=== PATIENT | female | born 1965 | race Caucasian/White ===

== ENCOUNTER 2017-04-26 13:05 | Emergency (ER) | payer OTHER ==
[2017-04-26 13:14] VITALS: RESP 18; TEMP 98.2
[2017-04-26] MEDS ORDERED: NS 1,000 ML IV ONE (13:23)
--- NOTE | 2017-04-26 13:27 | EDPHY ---
H & P Stated Complaint: seizure with head injury Time Seen by Provider: 04/26/17 13:25 HPI/ROS: CHIEF COMPLAINT: Seizure, head injury, neck pain HISTORY OF PRESENT ILLNESS: The patient was a working when she was observed to have a witnessed seizure. She fell backwards striking her head. She had a seizure lasted approximately 3-5 minutes. The patient does have a history of epilepsy. She is on Tegretol. She last had a seizure 1 year ago. The patient currently complains of an occipital headache, neck pain and slight confusion. She denies any additional traumatic complaints. She denies any recent history of fever, infection, chest pain or palpitations. The patient denies significant past medical history aside from her seizure disorder. REVIEW OF SYSTEMS: A comprehensive 10 point review of systems is otherwise negative aside from elements mentioned in the history of present illness. Source: Patient Exam Limitations: No limitations - Personal History LMP (Females 10-55): Post Menopausal Current Tetanus/Diphtheria Vaccine: Unsure Current Tetanus Diphtheria and Acellular Pertussis (TDAP): Unsure - Medical/Surgical History Hx Asthma: No Hx Chronic Respiratory Disease: No Hx Diabetes: No Hx Cardiac Disease: No Hx Renal Disease: No Hx Cirrhosis: No Hx Alcoholism: No Hx HIV/AIDS: No Hx Splenectomy or Spleen Trauma: No Other PMH: epilepsiy - Social History Smoking Status: Former smoker - Physical Exam Exam: General Appearance: Alert, no distress Head: Occipital hematoma with scalp tenderness, 3 x 5 cm Eyes: Pupils equal, round, reactive ENT, Mouth: No hemotympanum, small abrasion adjacent to tongue Neck: Tenderness to palpation mid cervical spine, poorly localized Respiratory: No chest wall tender, subcutaneous air, lungs clear bilaterally Cardiovascular: Regular rate and rhythm Abdomen: Abdomen is soft and nontender, pelvis stable Skin: No lacerations, No abrasion Back: No midline T/L/S pain Extremities: Nontender, full range of motion Neurological: Slightly postictal, A&Ox3, normal motor function, normal sensory exam Constitutional: Initial Vital Signs Temperature (C) 36.8 C 04/26/17 13:10 Heart Rate 96 04/26/17 13:10 Respiratory Rate 18 04/26/17 13:10 Blood Pressure 119/70 04/26/17 13:10 O2 Sat (%) 97 04/26/17 13:10 O2 Delivery Mode Room Air Allergies/Adverse Reactions: No Known Allergies Allergy (Unverified 04/26/17 13:13) Home Medications: Medication Instructions Recorded Carbatrol 500 mg BID 04/26/17 Medical Decision Making - Diagnostics Imaging Results: Imaging Impressions Cervical Spine CT 04/26/17 13:24 Impression: 1. No acute fracture or soft tissue swelling. 2. If the patient has persistent pain or neurologic deficits, consider cervical spine MRI. Findings discussed with Emergency Department physician, Terrance Del Cid, at 1350 hours 04/26/2017. Head CT 04/26/17 13:24 Impression: 1. No acute fracture or evidence of acute intracranial injury. 2. Right parietal scalp hematoma. Findings discussed with Emergency Department physician, Terrance Del Cid, at 1350 hours 04/26/2017. ED Course/Re-evaluation: The patient presents to the ED following a witnessed seizure work. She has a history of known epilepsy. The patient did sustain head trauma. She arrives complaining of headache and neck pain. The patient was taken for a stat CT scan of the head and cervical spine which demonstrate no evidence of intracranial hemorrhage, skull fracture or cervical spine fracture. The patient had an IV established. She was placed on a cardiac rehabilitation program director. The patient underwent serial examinations in the ED without evidence of a recurrent seizure. Patient was reexamined at 2:15 p.m.. She is improving clinically. Her postictal state has resolved. She denies additional traumatic injury. Her physical examination demonstrates no additional traumatic injury. The patient's Tegretol level is undetectable. She does admit that she likely has missed doses of this medication recently. She will resume her regular dose. She will follow up with her neurologist. She is given customary aftercare instructions and return precautions. Differential Diagnosis: Differential diagnosis considered includes seizure disorder, metabolic abnormality, status epilepticus, intracranial hemorrhage, skull fracture, cervical spine fracture - Data Points Laboratory Results: Laboratory Results 04/26/17 13:00 04/26/17 13:00 04/26/17 04/26/17 13:00 13:00 WBC 12.65 10^3/uL H 10^3/uL (3.80-9.50) RBC 4.84 10^6/uL 10^6/uL (4.18-5.33) Hgb 15.0 g/dL g/dL (12.6-16.3) Hct 44.5 % % (38.0-47.0) MCV 91.9 fL fL (81.5-99.8) MCH 31.0 pg pg (27.9-34.1) MCHC 33.7 g/dL g/dL (32.4-36.7) RDW 11.5 % % (11.5-15.2) Plt Count 317 10^3/uL 10^3/uL (150-400) MPV 10.0 fL fL (8.7-11.7) Neut % (Auto) 46.5 % % (39.3-74.2) Lymph % (Auto) 41.1 % % (15.0-45.0) Sac % (Auto) 9.2 % % (4.5-13.0) Eos % (Auto) 2.2 % % (0.6-7.6) Baso % (Auto) 0.6 % % (0.3-1.7) Nucleat RBC Rel Count 0.0 % % (0.0-0.2) Absolute Neuts (auto) 5.88 10^3/uL 10^3/uL (1.70-6.50) Absolute Lymphs (auto) 5.20 10^3/uL H 10^3/uL (1.00-3.00) Absolute Monos (auto) 1.17 10^3/uL H 10^3/uL (0.30-0.80) Absolute Eos (auto) 0.28 10^3/uL 10^3/uL (0.03-0.40) Absolute Basos (auto) 0.07 10^3/uL 10^3/uL (0.02-0.10) Absolute Nucleated RBC 0.00 10^3/uL 10^3/uL (0-0.01) Immature Gran % 0.4 % % (0.0-1.1) Immature Gran # 0.05 10^3/uL 10^3/uL (0.00-0.10) Sodium 141 mEq/L mEq/L (134-144) Potassium 3.7 mEq/L mEq/L (3.5-5.2) Chloride 100 mEq/L mEq/L (97-110) Carbon Dioxide 16 mEq/l L mEq/l (22-31) Anion Gap 25 mEq/L H mEq/L (8-16) BUN 16 mg/dL mg/dL (7-23) Creatinine 1.0 mg/dL mg/dL (0.6-1.0) Estimated GFR 59 Glucose 114 mg/dL H mg/dL (70-100) Calcium 9.3 mg/dL mg/dL (8.5-10.4) Carbamazepine < 3.0 ug/mL L ug/mL (4.0-12.0) Medications Given: Discontinued Medications Sodium Chloride (Ns) 1,000 mls @ 0 mls/hr IV ONCE ONE; Wide Open PRN Reason: Protocol Stop: 04/26/17 13:24 Last Admin: 04/26/17 13:40 Dose: 1,000 mls Departure - Departure Disposition: Home, Routine, Self-Care Clinical Impression: Seizure disorder, Scalp hematoma, Cervical strain, acute Condition: Good Instructions: Cervical Strain (ED), Recurrent Seizures in Adults (ED) Additional Instructions: 1. No driving, dangerous activities such as riding a ski lift, swimming in a pool or other behavior that could put you or someone else at risk in the event of a recurrent seizure. You will need to be cleared by a neurologist to resume these activities. 2. Please return to the ED for recurrent seizure, headache, numbness, weakness, altered mental status or other concerns. 3. Please follow up with your regular neurologist this week to schedule a follow -up appointment. 4. Your Tegretol level is undetectable - please be sure to take your regular dose. Please contact your neurologist tomorrow to review your dosing and follow up instructions. Referrals: KAVIN CARMONA [Primary Care Provider] - As per Instructions
[2017-04-26 13:43] LABS: ANION GAP 25 mEq/L (8-16); CALCIUM 9.3 mg/dL (8.5-10.4); CARBON DIOXIDE 16 mEq/l (22-31); CHLORIDE 100 mEq/L (97-110); GLOMERULAR FILTRATION RATE 59; GLUCOSE 114 mg/dL (70-100); POTASSIUM 3.7 mEq/L (3.5-5.2); SODIUM 141 mEq/L (134-144)
[2017-04-26 13:44] LABS: TEGRETOL (CARBAMAZEPINE) < 3.0 ug/mL (4.0-12.0)
[2017-04-26 13:56] LABS: % IMMATURE GRANULYOCYTES 0.4 % (0.0-1.1); ABSOLUTE IMMATURE GRANULOCYTES 0.05 10^3/uL (0.00-0.10); ADD DIFF? NO; ADD MORPH? NO; ADD SCAN? NO; ATYPICAL LYMPHOCYTE FLAG 10 (0-99); FRAGMENT RBC FLAG 0 (0-99); HEMATOCRIT 44.5 % (38.0-47.0); LEFT SHIFT FLG 0 (0-99); LIPEMIA HEMOLYSIS FLAG 80 (0-99); MEAN CELL HEMOGLOBIN CONCENTR. 33.7 g/dL (32.4-36.7); MEAN CELL VOLUME 91.9 fL (81.5-99.8); PLATELET CLUMPS FLAG 0 (0-99); PLATELET COUNT 317 10^3/uL (150-400); RED BLOOD CELL COUNT 4.84 10^6/uL (4.18-5.33); RED CELL DISTRIBUTION WIDTH 11.5 % (11.5-15.2)
[2017-04-26 15:23] VITALS: BP 106/62; PULSE 58; O2SAT 94
== END 2017-04-26 15:22 | disposition home or self-care (01) ==
DX: S16.1XXA Strain of muscle, fascia and tendon at neck level, initial encounter (principal); S00.03XA Contusion of scalp, initial encounter; G40.909 Epilepsy, unspecified, not intractable, without status epilepticus; E86.9 Volume depletion, unspecified; Z87.891 Personal history of nicotine dependence; W01.198A Fall on same level from slipping, tripping and stumbling with subsequent striking against other object, initial encounter